=== PATIENT | male | born 1950 | race American Indian/Alaskan Native ===

== ENCOUNTER 2017-01-06 09:31 | Emergency (ER) | payer MEDICAID ==
[2017-01-06 09:41] VITALS: BP 155/88; PULSE 86; RESP 18; TEMP 97.8; O2SAT 98
--- NOTE | 2017-01-06 09:55 | ED PDOC ---
Arrival/HPI - General Chief Complaint: Finger,Hand,&Wrist Time Seen by Provider: 01/06/17 09:46 Historian: Patient - History of Present Illness Narrative History of Present Illness (Text): 01/06/17 10:01 This 66 yo male presents to this ED c/o left 5th finger laceration x [employer]. Patient stated he noticed a small amount of blood from finger. He said he came to the ED to get a band aid. Patient does not want Tetanus, or any procedure.. Denies other complains. Time/Duration: Prior to Arrival Context: Home Past Medical History - Provider Review Nursing Documentation Reviewed: Yes - Psychiatric Hx Substance Use: No Family/Social History - Physician Review Nursing Documentation Reviewed: Yes Family/Social History: No Known Family HX Smoking Status: Former Smoker Hx Alcohol Use: No Hx Substance Use: No Allergies/Home Meds Allergies/Adverse Reactions: Allergies No Known Allergies Allergy (Verified 01/06/17 09:59) Review of Systems - Review of Systems Constitutional: Normal. absent: Fatigue, Weight Change, Fevers, Night Sweats Eyes: Normal ENT: Normal Respiratory: Normal Cardiovascular: Normal Gastrointestinal: Normal Genitourinary Male: Normal Musculoskeletal: Other (left 5th finger laceration) Skin: Normal Neurological: Normal Endocrine: Normal Hemo/Lymphatic: Normal Psychiatric: Normal Physical Exam Vital Signs Temp Pulse Resp BP Pulse Ox 01/06/17 09:34 97.8 F 86 18 155/88 H 98 Temperature: Afebrile Blood Pressure: Normal Pulse: Regular Respiratory Rate: Normal Appearance: Positive for: Well-Appearing, Non-Toxic, Comfortable Pain Distress: None Mental Status: Positive for: Alert and Oriented X 3 - Systems Exam Head: Present: Atraumatic, Normocephalic Pupils: Present: PERRL Extroacular Muscles: Present: EOMI Conjunctiva: Present: Normal Mouth: Present: Moist Mucous Membranes Neck: Present: Normal Range of Motion Back: Present: Normal Inspection Upper Extremity: Present: Normal ROM, NORMAL PULSES, Neurovascularly Intact, Capillary Refill < 2s, Other ((+) 1 cm left 5th finger tip. No deep structures) . No: Cyanosis, Edema Lower Extremity: Present: Normal Inspection. No: Edema Neurological: Present: GCS=15, CN II-XII Intact, Speech Normal, Motor Func Grossly Intact, Normal Sensory Function, Normal Cerebellar Funct Skin: Present: Warm, Dry, Normal Color. No: Rashes Psychiatric: Present: Alert, Oriented x 3 Medical Decision Making ED Course and Treatment: 01/06/17 10:11 Patient has a small laceration left 5th finger tip. He said he came for band aid ionly. He is refusing Tetanus or Dermabond. Patient was recommended to f/ u pmd in 1-2 days for wound cheack and to return to emergency if symptoms worsen. Re-evaluation Time: 10:10 Reassessment Condition: Re-examined, Improved - Medication Orders Current Medication Orders: Tetanus/Reduced Diphtheria/Acell Pertussis (Boostrix Vaccine Inj) 0.5 ml IM .ONCE ONE Stop: 01/06/17 10:01 Disposition/Present on Arrival - Present on Arrival Any Indicators Present on Arrival: No History of DVT/PE: No History of Uncontrolled Diabetes: No Urinary Catheter: No History of Decub. Ulcer: No History Surgical Site Infection Following: None - Disposition Have Diagnosis and Disposition been Completed?: Yes Diagnosis: Finger laceration Disposition: HOME/ ROUTINE Disposition Time: 10:12 Patient Plan: Discharge Condition: GOOD Discharge Instructions (ExitCare): Laceration Without Closure (ED) Additional Instructions: Call private doctor for follow up visit in 1-2 days. Take medication as instructed. Clean wound daily with soap and water and apply Neosporin ointment. Return to emergency if symptoms worsen. Referrals: Ching Golden, [Primary Care Provider] - Follow up with primary [facility] [Outside] - Follow up with primary [facility] [Outside] - Follow up with primary Forms: [employer] (Japanese)
[2017-01-06] MEDS ORDERED: TDAP Vaccine 0.5 mL Syr IM ONE (10:00)
== END 2017-01-06 10:17 | disposition home or self-care (01) ==
LOC: ED 09:31
DX: S61.217A Laceration without foreign body of left little finger without damage to nail, initial encounter (principal); W45.8XXA Other foreign body or object entering through skin, initial encounter; Y93.89 Activity, other specified; Y92.89 Other specified places as the place of occurrence of the external cause

== ENCOUNTER 2017-01-24 06:26 | Emergency (ER) | payer MEDICAID ==
[2017-01-24 07:40] VITALS: RESP 18; TEMP 97.9; O2SAT 100
--- NOTE | 2017-01-24 07:46 | EDPD ---
Arrival/HPI - History of Present Illness Time/Duration: < month Symptom Onset: Gradual Symptom Course: Unchanged Severity Level: 1 Activities at Onset: Rest, Other Context: Sitting <Gopal Dyer - Last Filed: 01/24/17 08:00> <Carmen Collins - Last Filed: 01/24/17 08:52> - General Time Seen by Provider: 01/24/17 07:31 - History of Present Illness Narrative History of Present Illness (Text): 01/24/17 07:44 This is a 66 yr. old male with no past medical history who comes into [facility] complaining of a productive cough for three weeks. The patient states that the cough is worse at night. The patient states that going to the sauna makes the cough better. He denies any fever, chills, nausea, vomiting, lightheadedness, dizziness, chest pain, or shortness of breath. (Gopal Dyer) Past Medical History - Provider Review Nursing Documentation Reviewed: Yes - Travel History Have you traveled outside of the [place] within the last 3 mons?: No <Gopal Dyer - Last Filed: 01/24/17 08:00> Family/Social History - Physician Review Nursing Documentation Reviewed: Yes Smoking Status: Former Smoker Hx Alcohol Use: No Hx Substance Use: No <Gopal Dyer - Last Filed: 01/24/17 08:00> - Physician Review Nursing Documentation Reviewed: Yes Family/Social History: No Known Family HX Smoking Status: no current tobacco use <Carmen Collins - Last Filed: 01/24/17 08:52> Allergies/Home Meds <Gopal Dyer - Last Filed: 01/24/17 08:00> <Carmen Collins - Last Filed: 01/24/17 08:52> Allergies/Adverse Reactions: Allergies No Known Allergies Allergy (Verified 01/06/17 09:59) Pediatric Review of Systems - Physician Review All systems were reviewed & negative as marked: Yes - Review of Systems Constitutional: Normal. absent: Fevers, Night Sweats Eyes: Normal. absent: Vision Changes, Eye Pain ENT: Normal. absent: Hearing Changes, Sore Throat, Sinus Congestion Respiratory: Cough (productive 3 weeks), Sputum (describes as greyish white in color). absent: Normal Cardiovascular: Normal. absent: Chest Pain, Palpitations, Edema Gastrointestinal: Normal. absent: Abdominal Pain, Stool Changes, Constipation, Diarrhea, Nausea, Vomitting Genitourinary Male: absent: Frequency, Hematuria Musculoskeletal: Normal. absent: Back Pain, Joint Swelling Skin: Normal Neurologic: Normal. absent: Headache, Dizziness, Focal Weakness Endocrine: Normal. absent: Polyuria, Polydipsia <Gopal Dyer - Last Filed: 01/24/17 08:00> Pediatric Physical Exam Vital Signs Reviewed: Yes Temperature: Afebrile Blood Pressure: Normal Pulse: Regular Respiratory Rate: Normal Appearance: Positive for: Well-Appearing, Non-Toxic, Comfortable Pain Distress: None Mental Status: Positive for: Alert and Oriented X 3 - Systems Exam Head: Present: Atraumatic Pupils: Present: PERRL. No: Non-Reactive Extroacular Muscles: Present: EOMI. No: Entrapment Conjunctiva: Present: Normal. No: Icteric Mouth: Present: Moist Mucous Membranes Pharnyx: Present: Normal. No: ERYTHEMA, EXUDATE Neck: Present: Normal Range of Motion. No: JVD, Lymphadenopathy Respiratory/Chest: Present: Clear to Auscultation, Good Air Exchange. No: Respiratory Distress, Accessory Muscle Use, Wheezes, Rhonchi Cardiovascular: Present: Regular Rate and Rhythm. No: Murmurs, Tachycardic, Bradycardic <Gopal Dyer - Last Filed: 01/24/17 08:00> Medical Decision Making <Gopal Dyer - Last Filed: 01/24/17 08:00> <Carmen Collins - Last Filed: 01/24/17 08:52> ED Course and Treatment: 01/24/17 08:32 Patient seen by resident and then evaluated by me. Patient complaining of productive cough x 3 weeks and requesting cough medication. Afebrile and well appearing on presentation. Lungs cta b/l. Cxray negative. Instructed to follow-up with PMD for further evaluation of chronic cough. (Carmen Collins) - RAD Interpretation Radiology Orders: 01/24/17 08:09 CHEST TWO VIEWS (PA/LAT) [RAD] Stat - Medication Orders Current Medication Orders: Benzonatate (Tessalon Perles) 100 mg PO TID WING Disposition/Present on Arrival - Present on Arrival History of DVT/PE: No History of Uncontrolled Diabetes: No Urinary Catheter: No History Surgical Site Infection Following: None <Gopal Dyer - Last Filed: 01/24/17 08:00> - Present on Arrival Any Indicators Present on Arrival: No - Disposition Have Diagnosis and Disposition been Completed?: Yes Disposition Time: 08:33 Patient Plan: Discharge <Carmen Collins - Last Filed: 01/24/17 08:52> - Disposition Diagnosis: Cough Disposition: HOME/ ROUTINE Patient Problems: Current Active Problems Problem Status Onset Cough Acute Condition: GOOD Discharge Instructions (ExitCare): Chronic Cough (ED) Additional Instructions: Follow-up with PMD for further evaluation of chronic cough. Return to ED if condition worsens. Medication as needed for cough Prescriptions: Benzonatate [Tessalon Perles] 100 mg PO TID #20 sgl Referrals: PCP,NO [Primary Care Provider] - Follow up with primary
--- NOTE | 2017-01-24 08:51 | RAD ---
HISTORY: productive cough COMPARISON: No prior. TECHNIQUE: Chest PA and lateral FINDINGS: LUNGS: No active pulmonary disease. PLEURA: No significant pleural effusion identified. No pneumothorax apparent. CARDIOVASCULAR: Normal. OSSEOUS STRUCTURES: No significant abnormalities. VISUALIZED UPPER ABDOMEN: Normal. OTHER FINDINGS: None. IMPRESSION: No active disease.
[2017-01-24 09:36] VITALS: BP 115/68; PULSE 80
== END 2017-01-24 09:20 | disposition home or self-care (01) ==
LOC: ED 06:26
DX: R05 Cough (principal)

== ENCOUNTER 2017-10-27 14:59 | Emergency (ER) | payer MEDICAID ==
[2017-10-27 15:04] VITALS: BMI 23.7
--- NOTE | 2017-10-27 15:09 | ED PDOC ---
Arrival/HPI - General Chief Complaint: Cough, Cold, Congestion Time Seen by Provider: 10/27/17 15:04 Historian: Patient - History of Present Illness Narrative History of Present Illness (Text): 10/27/17 15:06 66yo male with no PMHx who present with 7days history of productive cough. States he was exposed to people who were coughing in a gym. He did not take any medication. Denies fever, chills, SOB, chest pain, diaphoresis, any other complaint. Past Medical History - Provider Review Nursing Documentation Reviewed: Yes - Infectious Disease Hx of Infectious Diseases: None - Psychiatric Hx Substance Use: No - Anesthesia Hx Anesthesia: Yes Hx Anesthesia Reactions: No Hx Malignant Hyperthermia: No Family/Social History - Physician Review Nursing Documentation Reviewed: Yes Family/Social History: Unknown Family HX Smoking Status: Never Smoked Hx Alcohol Use: No Hx Substance Use: No Allergies/Home Meds Allergies/Adverse Reactions: Allergies No Known Allergies Allergy (Verified 01/06/17 09:59) Review of Systems - Physician Review All systems were reviewed & negative as marked: Yes - Review of Systems Constitutional: Normal Eyes: Normal ENT: Normal Respiratory: Cough, Sputum. absent: SOB, Wheezing Cardiovascular: Normal Gastrointestinal: Normal Genitourinary Male: Normal Musculoskeletal: Normal Skin: Normal Neurological: Normal Endocrine: Normal Hemo/Lymphatic: Normal Psychiatric: Normal Physical Exam Vital Signs Reviewed: Yes Vital Signs Temp Pulse Resp BP Pulse Ox 10/27/17 15:12 98.8 F 83 24 152/92 H 97 Temperature: Afebrile Blood Pressure: Normal Pulse: Regular Respiratory Rate: Normal Appearance: Positive for: Well-Appearing, Non-Toxic, Comfortable Pain Distress: None Mental Status: Positive for: Alert and Oriented X 3 - Systems Exam Head: Present: Atraumatic, Normocephalic Pupils: Present: PERRL Extroacular Muscles: Present: EOMI Conjunctiva: Present: Normal Mouth: Present: Moist Mucous Membranes Neck: Present: Normal Range of Motion Respiratory/Chest: Present: Clear to Auscultation, Good Air Exchange. No: Respiratory Distress, Accessory Muscle Use, Wheezes, Decreased Breath Sounds, Rales, Retracting, Rhonchi, Tachypneic Cardiovascular: Present: Regular Rate and Rhythm, Normal S1, S2. No: Murmurs Abdomen: No: Tenderness, Distention, Peritoneal Signs Back: Present: Normal Inspection Upper Extremity: Present: Normal Inspection. No: Cyanosis, Edema Lower Extremity: Present: Normal Inspection. No: Edema Neurological: Present: GCS=15, CN II-XII Intact, Speech Normal Skin: Present: Warm, Dry, Normal Color. No: Rashes Psychiatric: Present: Alert, Oriented x 3, Normal Insight, Normal Concentration Medical Decision Making ED Course and Treatment: 10/27/17 15:09 PT was hemodynamically stable in ED. Afebrile and in no respiratory distress. CXR NAD He was treated with antitussive. Abx not indicated at this time. He was referred to his PMD/clinic - RAD Interpretation Radiology Orders: 10/27/17 15:05 CHEST TWO VIEWS (PA/LAT) [RAD] Stat - Medication Orders Current Medication Orders: Discontinued Medications Benzonatate (Tessalon Perles) 100 mg PO ONCE STA Stop: 10/27/17 15:08 Last Admin: 10/27/17 15:34 Dose: 100 mg Disposition/Present on Arrival - Present on Arrival Any Indicators Present on Arrival: No History of DVT/PE: No History of Uncontrolled Diabetes: No Urinary Catheter: No History of Decub. Ulcer: No History Surgical Site Infection Following: None - Disposition Have Diagnosis and Disposition been Completed?: Yes Diagnosis: Cough Disposition: HOME/ ROUTINE Disposition Time: 15:40 Patient Plan: Discharge Patient Problems: Current Active Problems Problem Status Onset Cough Acute Condition: STABLE Discharge Instructions (ExitCare): Cough, Adult (DC) Additional Instructions: Follow up with your Doctor Return to Ed for any new or worsening symptoms Prescriptions: Benzonatate [Tessalon Perle] 100 mg PO TID #21 capsule Referrals: [facility] [place] [Outside] - Follow up with primary Forms: [employer] (Belarusian)
[2017-10-27 15:16] VITALS: BP 152/92; TEMP 98.8; O2SAT 97
--- NOTE | 2017-10-27 15:37 | RAD ---
HISTORY: cough COMPARISON: 01/24/2017 TECHNIQUE: Chest PA and lateral FINDINGS: LUNGS: No active pulmonary disease. PLEURA: No significant pleural effusion identified. No pneumothorax apparent. CARDIOVASCULAR: Normal. OSSEOUS STRUCTURES: Thoracic spondylosis. VISUALIZED UPPER ABDOMEN: Normal. OTHER FINDINGS: None. IMPRESSION: No active disease.
[2017-10-27 15:46] VITALS: PULSE 78; RESP 18
== END 2017-10-27 15:44 | disposition home or self-care (01) ==
LOC: ED 14:59
DX: R05 Cough (principal)

== ENCOUNTER 2018-05-14 11:28 | Emergency (ER) | payer MEDICAID ==
[2018-05-14 11:38] VITALS: BMI 25.0
[2018-05-14 11:43] VITALS: RESP 18; TEMP 98.3
--- NOTE | 2018-05-14 11:52 | ED PDOC ---
Arrival/HPI - General Chief Complaint: Cough, Cold, Congestion Time Seen by Provider: 05/14/18 11:29 Historian: Patient - History of Present Illness Time/Duration: Other (3 days) Symptom Onset: Gradual Symptom Course: Unchanged Severity Level: Mild Associated Symptoms (Text): 05/14/18 11:50 Patient reports a three-day history of a cough productive of white sputum. No chest pain. No dyspnea. No fever or chills. He reports that some people have been coughing in the gym and he believes he developed a cough from them. He appears to be in no distress. Past Medical History - Infectious Disease Hx of Infectious Diseases: None - Psychiatric Hx Substance Use: No - Anesthesia Hx Anesthesia: Yes Hx Anesthesia Reactions: No Hx Malignant Hyperthermia: No Family/Social History - Physician Review Nursing Documentation Reviewed: Yes Family/Social History: Unknown Family HX Smoking Status: Former Smoker (Quit smoking many many years ago) Hx Alcohol Use: No Hx Substance Use: No Allergies/Home Meds Allergies/Adverse Reactions: Allergies No Known Allergies Allergy (Verified 01/06/17 09:59) Review of Systems - Physician Review All systems were reviewed & negative as marked: Yes - Review of Systems Constitutional: absent: Fatigue, Fevers ENT: absent: Rhinorrhea, Sinus Congestion Respiratory: Cough, Sputum. absent: SOB, Wheezing Cardiovascular: absent: Chest Pain, Palpitations Gastrointestinal: absent: Abdominal Pain, Nausea, Vomiting Neurological: absent: Headache, Dizziness, Focal Weakness Physical Exam Vital Signs Temp Pulse Resp BP Pulse Ox 05/14/18 11:28 98.3 F 106 H 18 137/83 96 Temperature: Afebrile Blood Pressure: Normal Pulse: Regular Respiratory Rate: Normal Appearance: Positive for: Well-Appearing, Non-Toxic, Comfortable Pain Distress: None Mental Status: Positive for: Alert and Oriented X 3 - Systems Exam Head: Present: Atraumatic, Normocephalic Ears: Present: NORMAL TM, Normal Canal. No: Erythema, TM Bulging Mouth: Present: Moist Mucous Membranes Pharnyx: No: ERYTHEMA, EXUDATE, TONSILS ENLARGED Nose (Internal): Present: Normal Inspection Neck: Present: Normal Range of Motion Respiratory/Chest: Present: Clear to Auscultation, Good Air Exchange. No: Respiratory Distress, Accessory Muscle Use Cardiovascular: Present: Regular Rate and Rhythm, Normal S1, S2. No: Murmurs Abdomen: No: Tenderness, Distention, Peritoneal Signs Back: Present: Normal Inspection Upper Extremity: Present: Normal Inspection. No: Cyanosis, Edema Lower Extremity: Present: Normal Inspection. No: Edema Neurological: Present: GCS=15, CN II-XII Intact, Speech Normal, Motor Func Grossly Intact Skin: Present: Warm, Dry, Normal Color. No: Rashes Psychiatric: Present: Alert, Oriented x 3, Normal Insight, Normal Concentration Medical Decision Making ED Course and Treatment: 05/14/18 12:00 Chest x-ray is normal. Antibiotics are not indicated at this time. Patient will be given Tessalon and discharged to follow-up with PMD. Follow up in ER as needed. - RAD Interpretation Radiology Orders: 05/14/18 11:49 CHEST TWO VIEWS (PA/LAT) [RAD] Stat Chest 2 view shows no infiltrate effusion or cardiomegaly. User Experience Manager: ED Physician Disposition/Present on Arrival - Present on Arrival Any Indicators Present on Arrival: No History of DVT/PE: No History of Uncontrolled Diabetes: No Urinary Catheter: No History of Decub. Ulcer: No History Surgical Site Infection Following: None - Disposition Have Diagnosis and Disposition been Completed?: Yes Diagnosis: Cough Disposition: HOME/ ROUTINE Disposition Time: 12:01 Patient Plan: Discharge Condition: GOOD Discharge Instructions (ExitCare): Cough in Adults, Viral Upper Respiratory Infection, Adult (DC), Acute Bronchitis, Adult (DC) Additional Instructions: Symptomatic treatment. Tylenol or Advil as directed on bottle as needed. Follow- up with PMD. Follow up in ER as needed. Prescriptions: Benzonatate [Tessalon Perles] 100 mg PO Q8 #30 sgl Forms: [employer] (Greenlandic)
[2018-05-14 12:16] VITALS: BP 128/76; PULSE 96; O2SAT 99
--- NOTE | 2018-05-14 16:47 | RAD ---
Date of service: 05/14/2018 HISTORY: cough COMPARISON: Comparison chest dated 10/27/2017 TECHNIQUE: Chest PA and lateral FINDINGS: LUNGS: No active pulmonary disease. PLEURA: No significant pleural effusion identified. No pneumothorax apparent. CARDIOVASCULAR: Minimal minimal aortic atherosclerotic calcification present. Normal cardiac size. No pulmonary vascular congestion. OSSEOUS STRUCTURES: Mild multilevel degenerative spondylosis of the thoracic spine. VISUALIZED UPPER ABDOMEN: Normal. OTHER FINDINGS: None. IMPRESSION: No active disease.
== END 2018-05-14 12:15 | disposition home or self-care (01) ==
LOC: ED 11:28
DX: R05 Cough (principal); Z87.891 Personal history of nicotine dependence